=== PATIENT | male | born 1955 ===

== ENCOUNTER 2017-12-21 09:31 | Day surgery (SDC) | payer OTHER ==
[~2017-12-21] VITALS: Ht 177.8 cm; Wt 82.2 kg
[~2017-12-21 09:31] MED LIST: HYDCHL12.5; Lisinopril2.5 MG; Percocet 5-3251 EACH PO; ROSU5
[2017-12-21] MEDS ORDERED: CHOL10002 (09:50)
== END 2017-12-21 11:40 | disposition home or self-care (01) ==
LOC: ORSCSDS 09:31
PROVIDERS: Internal Medicine Gastroenterology
PROC: 3E0H8GC Introduction of Other Therapeutic Substance into Lower GI, Via Natural or Artificial Opening Endoscopic (ICD-10-PCS; principal; 2017-12-21 10:45)
PROC: 0DBK8ZX Excision of Ascending Colon, Via Natural or Artificial Opening Endoscopic, Diagnostic (ICD-10-PCS; principal; 2017-12-21 10:45)
PROC: 0DBN8ZX Excision of Sigmoid Colon, Via Natural or Artificial Opening Endoscopic, Diagnostic (ICD-10-PCS; principal; 2017-12-21 10:45)
PROC: 0DBL8ZX Excision of Transverse Colon, Via Natural or Artificial Opening Endoscopic, Diagnostic (ICD-10-PCS; principal; 2017-12-21 10:45)
DX: Z12.11 Encounter for screening for malignant neoplasm of colon (principal); D12.2 Benign neoplasm of ascending colon; D12.3 Benign neoplasm of transverse colon; K57.30 Diverticulosis of large intestine without perforation or abscess without bleeding; K64.8 Other hemorrhoids; I10 Essential (primary) hypertension; Z79.899 Other long term (current) drug therapy
CPT/HCPCS: 88305; J1980

== ENCOUNTER 2025-03-11 06:00 | Day surgery (SDC) | payer MEDICARE ==
[~2025-03-11] VITALS: Ht 177.8 cm; Wt 82.9 kg
[2025-03-11] VITALS (12 sets, daily range): BP systolic 113–149; BP diastolic 65–94
[~2025-03-11 06:00] MED LIST changes: +CHOL10002; +Glucophage 850850 MG PO; -HYDCHL12.5; +HYDROCHLOROTH12.5 MG PO; +LISI20 PO; -Lisinopril2.5 MG; +QUET25 PO; -ROSU5; +ROSUVASTATIN CA10 MG PO
[2025-03-11] MEDS ORDERED: Ropivacaine 0.5% HCl/Pf 123.125 MG,EPINEPHrine HCL 0.25 MG,Ketorolac Tromethamine 15 MG... INFIL SCH (06:20)
[2025-03-11] MEDS ORDERED: Chlorhexidine Mouth Care 15 ML UDC MT SCH (06:20)
[2025-03-11] MEDS ORDERED: Tranexamic Acid 100 ML IV SCH (06:20)
[2025-03-11] MEDS ORDERED: CeFAZolin Sodium 2,000 MG in NS 100 ML IV SCH ×2 (06:20→15:45)
[2025-03-11] MEDS ORDERED: HYDROmorphone HCl/Pf 1MG SYR IV PRN ×3 (07:00→10:20)
[2025-03-11] MEDS ORDERED: FLU VACC TS2025(65UP)/MF59C/PF 45 MCG/0.5 ML SYRINGE IM SCH (07:00)
[2025-03-11] MEDS ORDERED: Metoclopramide HCl 5MG / ML 2ML Vial IV PRN (07:05)
[2025-03-11] MEDS ORDERED: Magnesium Hydroxide Conc 10 ML UDC PO PRN (07:05)
[2025-03-11] MEDS ORDERED: Ondansetron HCl 2 MG / ML 2ML Vial IV PRN ×2 (07:05→10:20)
--- NOTE | 2025-03-11 07:13 | NUR ---
History, Chart, Medications and Allergies reviewed before start of procedure. Lungs clear T/O to Auscultation. Patient confirms NPO status and agrees with scheduled surgery. Patient reports completing Chlorhexadine shower X2 prior to admission to hospital. Pre-Op teaching done. Pt verbalizes understanding.
[2025-03-11] MEDS ORDERED: NS 1,000 ML IV SCH (07:15)
[2025-03-11] MEDS ORDERED: Magnesium Sulfate 500 MG / ML 2ML Vial ONE (07:15)
[2025-03-11] MEDS ORDERED: FentaNYL Citrate 50 MCG/ML 2 ML Injection ONE (07:18)
[2025-03-11] MEDS ORDERED: Midazolam HCl 1MG / ML 2ML Vial ONE (07:18)
[2025-03-11] MEDS ORDERED: Insulin Regular 100 UNIT/ML 10ML Vial SC SCH (07:30)
[2025-03-11] MEDS ORDERED: ePHEDrine Sulfate 50 MG/ML 1ML Injection ONE (07:42)
[2025-03-11] MEDS ORDERED: Dexamethasone Sod Phos 10 MG/ML 1ML VIAL ONE (07:42)
[2025-03-11] MEDS ORDERED: Phenylephrine HCl 100 MCG/ML-NS 10MLSYR (1MG/10ML) ONE (08:26)
[2025-03-11] MEDS ORDERED: HYDROmorphone HCl/Pf 1MG SYR ONE (08:49)
[2025-03-11] MEDS ORDERED: Ondansetron HCl 2 MG / ML 2ML Vial ONE (09:30)
[2025-03-11] MEDS ORDERED: FentaNYL Citrate 50 MCG/ML 2 ML Injection IV PRN ×2 (10:15→10:20)
[2025-03-11] MEDS ORDERED: Labetalol HCL 5 MG/ML 4ML Injection (Single Dose) IV PRN (10:20)
[2025-03-11] MEDS ORDERED: Ketorolac Tromethamine 30mg Vial ONE (10:27)
--- NOTE | 2025-03-11 10:53 | NUR ---
pt to room 216 from PACU. postop vs started and stable. pt alert to verbal. oriented to room. pt able to wiggle toes and partially able to lift leg from bed. dressing cdi. will continue to monitor.
[2025-03-11] MEDS ORDERED: ACET500 PO (11:46)
[2025-03-11] MEDS ORDERED: ASPI81CH PO (11:47)
[2025-03-11] MEDS ORDERED: OXYC5 PO (11:47)
[2025-03-11] MEDS ORDERED: SULTRIDS PO (11:48)
[2025-03-11] MEDS ORDERED: Ketorolac Tromethamine 15mg Vial IV SCH (12:00)
--- NOTE | 2025-03-11 15:12 | NUR ---
DC INSTRUCT REVIEWED. STATED UNDERSTANDING. IV DC'D INTACT. PRINTED INSTRUCT DISPENSED. WILL DC TO POV PIPER READY.
[2025-03-12] MEDS ORDERED: Trimethoprim/Sulfamethoxazole DS Tab PO SCH (09:00)
== END 2025-03-11 15:40 | disposition home or self-care (01) ==
LOC: ORSCMMR 06:00 → ORD 07:30 → SURS 10:40 → ORSCMMR 15:40
PROVIDERS: Orthopaedic Surgery
PROC: 0SRD0JA Replacement of Left Knee Joint with Synthetic Substitute, Uncemented, Open Approach (ICD-10-PCS; principal; 2025-03-11 07:30)
DX: M17.12 Unilateral primary osteoarthritis, left knee (principal); I10 Essential (primary) hypertension; E11.9 Type 2 diabetes mellitus without complications; Z79.84 Long term (current) use of oral hypoglycemic drugs; Z79.899 Other long term (current) drug therapy
CPT/HCPCS: 73560-LT; 82947; 97110; 97116; 97162; 97530; A9270; C1713; C1776; J0166; J0690; J0735; J1100; J1171; J1885; J2250; J2371; J2405; J2704; J2795; J3010; J3475; J7120